=== PATIENT | female | born 1965 | race Hispanic/Latino ===

== ENCOUNTER 2016-07-18 22:06 | Emergency (ER) | payer SELFPAY ==
[~2016-07-18] VITALS: Ht 157.5 cm; Wt 75.4 kg
[~2016-07-18 22:06] MED LIST: GLYB/METFO5 MG/500 M PO
[2016-07-18] MEDS ORDERED: NOVOLIN N100 UNIT/1 SC (22:46)
[2016-07-18] MEDS ORDERED: ORPHENADRINE C100 MG PO (22:48)
[2016-07-18] MEDS ORDERED: PERCOCET 5/321 COMBO PO (22:49)
[2016-07-19] LABS: HEMATOCRIT 39.7 % (37.0-47.0); HEMOGLOBIN 13.3 g/dl (12.0-16.0); IMMATURE GRANULOCYTES 0.6 % (0.0-1.0); MEAN CELL VOLUME 87.4 fL CALC (80.0-100.0); MEAN CORPUSCULAR HGB 29.3 pG CALC (26.0-32.0); MEAN CORPUSCULAR HGB CONC 33.5 g/L CALC (32.0-36.0); NEUT# 4.59 thou/uL (2.00-7.15); RED BLOOD COUNT 4.54 mill/uL (4.20-5.60); RED CELL DISTRI WIDTH 12.4 % (11.5-15.5)
[2016-07-19 00:12] LABS: ALKALINE PHOSPHATASE 218 u/l (38-126); ANION GAP 15 (6-22 (CALC)); BILIRUBIN, TOTAL 0.4 mg/dL (0.0-1.4); BUN 15 mg/dL (7-17); BUN/CREATININE RATIO 20 (12-20 (CALC)); CALCIUM 9.2 mg/dL (8.4-10.2); CARBON DIOXIDE 26 mmol/l (22-30); CHLORIDE 104 mmol/l (95-108); CREATININE 0.7 mg/dL (0.5-1.0); GFR > 60 ML/MIN (>=60 (CALC)); GFR FOR AFR.AMER. > 60 ML/MIN (>=60 (CALC)); GLUCOSE 173 mg/dL (65-105); POTASSIUM 3.7 mmol/l (3.5-5.1); SGOT/AST 36 u/l (14-36); SGPT/ALT 37 u/l (9-52); SODIUM 141 mmol/l (137-146)
[2016-07-19 00:23] LABS: MYOGLOBIN 13 ng/mL (0 - 62)
[2016-07-19] MEDS ORDERED: ASPIRIN 81 LOW81 MG PO (01:01)
[2016-07-19] MEDS ORDERED: XANAX0.25 MG PO (01:01)
[2016-07-19 01:24] VITALS: BP 154/97
== END 2016-07-19 01:29 | disposition home or self-care (01) | DRG 204 ==
LOC: ED 22:06
PROVIDERS: Emergency Medicine
DX: R06.00 Dyspnea, unspecified (principal); E11.9 Type 2 diabetes mellitus without complications; I25.10 Atherosclerotic heart disease of native coronary artery without angina pectoris